=== PATIENT | male | born 1980 | race Caucasian/White ===

== ENCOUNTER 2020-11-20 16:54 | Emergency (ER) | payer OTHER ==
[~2020-11-20] VITALS: Ht 172.7 cm; Wt 72.6 kg
[2020-11-20] MEDS ORDERED: HYDROCODON-ACE1 EAC7 PO (17:56)
[2020-11-20 18:15] VITALS: BP 114/80
== END 2020-11-20 18:16 | disposition home or self-care (01) ==
LOC: M.ERS 16:54
DX: S43.004A Unspecified dislocation of right shoulder joint, initial encounter (principal); X50.9XXA Other and unspecified overexertion or strenuous movements or postures, initial encounter; Y93.89 Activity, other specified; Y92.830 Public park as the place of occurrence of the external cause; Y99.8 Other external cause status